=== PATIENT | male | born 1965 | race Two or more races ===

== ENCOUNTER 2018-03-11 18:36 | Emergency (ER) | payer MEDICAID ==
[~2018-03-11] VITALS: Ht 170.2 cm; Wt 81.6 kg
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
--- NOTE | 2018-03-11 19:00 | NUR ---
DR TORIBIO AT BS FOR EVAL.
--- NOTE | 2018-03-11 19:17 | NUR ---
REPORT GIVEN TO VLAD CARDOSO FOR GAEL.
--- NOTE | 2018-03-11 19:23 | NUR ---
URINE OBTAINED SENT TO THE LAB.
--- NOTE | 2018-03-11 19:26 | NUR ---
RECEIVED REPORT FROM VLAD ANDREW FOR GAEL. [employer] LEAVING PT'S BEDSIDE. PT SAFETY AND COMFORT MEASURES IN PLACE. SI PRECAUTIONS IN PLACE. WILL CONTINUE TO MONITOR PT
[2018-03-11 19:33] LABS: APPEARANCE,URINE Clear (CLEAR); BILIRUBIN,URINE Negative (NEGATIVE); BLOOD, URINE Small Ery/uL (NEGATIVE); COLOR,URINE Yellow (YELLOW); KETONES,URINE Negative (NEGATIVE); LEUKOCYTE ESTERASE ,URINE Negative (NEGATIVE); NITRITE, URINE Negative (NEGATIVE); PROTEIN,URINE Negative (NEGATIVE); UGLUCOSE Negative (NEGATIVE); UROBILINOGEN,URINE 0.2 EU/dL (0.2)
--- NOTE | 2018-03-11 19:33 | NUR ---
CALLED POOL NURSE FOR A SITTER.
[2018-03-11 19:35] LABS: BACTERIA,URINE Rare /HPF (None Seen); SQUAMOUS EPITHELIAL CELL,UR Few /HPF (None Seen); WBC,URINE 0-2 /HPF (0-3)
[2018-03-11 19:45] LABS: BASOPHILS # (AUTO) 0.1 /CMM (0.0-0.2); EOSINOPHILS % (AUTO) 1.7 % (0.0-6.0); HEMATOCRIT 44 % (39-51); HEMOGLOBIN 14.7 g/dL (13.5-17.5); LYMPHOCYTES # (AUTO) 2.1 /CMM (0.8-4.8); LYMPHOCYTES % (AUTO) 26.4 % (20.0-44.0); MEAN CORPUSCULAR HGB CONC 33 g/dl (31.0-36.0); MEAN CORPUSCULAR VOLUME 96 fL (80-96); MONOCYTES # (AUTO) 0.6 /CMM (0.1-1.30); NEUTROPHILS # (AUTO) 5.2 /CMM (1.8-8.9); NEUTROPHILS % (AUTO) 63.9 % (43.0-81.0); PLATELET COUNT (AUTO) 211 /CMM (150-450); WHITE BLOOD COUNT (AUTO) 8.1 K/uL (4.3-11.0)
[2018-03-11 19:55] LABS: CALCIUM, SERUM 7.9 mg/dL (8.5-10.1); CARBON DIOXIDE 25 mmol/L (21-32); CHLORIDE 104 mmol/L (98-107); CREATININE 0.8 mg/dL (0.6-1.3); GLUCOSE 100 mg/dL (74-106); POTASSIUM 3.6 mmol/L (3.5-5.1); SODIUM SERUM 141 mmol/L (136-145); UREA NITROGEN, BLOOD 9 mg/dL (7-18)
--- NOTE | 2018-03-11 20:01 | NUR ---
[facility] CONTACT INFORMATION [phone]
[2018-03-11 20:02] LABS: ALANINE AMINOTRANSFERASE 63 U/L (12-78); ALBUMIN 3.8 g/dL (3.4-5.0); ALCOHOL, BLOOD 374 mg/dL (0-0); ALKALINE PHOSPHATASE 96 U/L (46-116); ASPARTATE AMINOTRANSFERASE 71 U/L (15-37); BILIRUBIN,DIRECT 0.1 mg/dL (0.0-0.2); BILIRUBIN,TOTAL 0.3 mg/dL (0.2-1.0); TOTAL PROTEIN, SERUM 7.5 g/dL (6.4-8.2)
--- NOTE | 2018-03-11 20:03 | NUR ---
PSYCHIATRIC PAPER INSERTER CURRY OCAMPO WITH PT.
[2018-03-11 20:04] LABS: ACETAMINOPHEN < 2 ug/ml (10-30); SALICYLATE 2.5 mg/dL (2.8-20.0)
--- NOTE | 2018-03-11 21:17 | NUR ---
Patient is resting comfortably in bed with eyes closed. Easily aroused. VSS
--- NOTE | 2018-03-11 21:17 | NUR ---
CALLED [facility]LE FOR BLS TRANSPORT TO [facility]. NON-IMMEDIATE TRANSPORT REQUESTED FOR 0100 HRS. RUN #: [id number]
--- NOTE | 2018-03-12 02:12 | NUR ---
REPORT GIVEN TO EMS FOR GAEL. PT BEING TRANSFERED ONTO EMS GURNEY. NO S/S OF ACUTE DISTRESS NOTED UPON TRANSFER. Patient Tranfers to outside Facility Physician:HALINA Location:[facility]
[2018-03-12 02:14] VITALS: BP 149/96
== END 2018-03-12 02:16 ==
LOC: ER 18:36
DX: F10.129 Alcohol abuse with intoxication, unspecified (principal); F32.9 Major depressive disorder, single episode, unspecified; I10 Essential (primary) hypertension; F17.200 Nicotine dependence, unspecified, uncomplicated; F12.10 Cannabis abuse, uncomplicated; Y90.8 Blood alcohol level of 240 mg/100 ml or more; Z60.2 Problems related to living alone
CPT/HCPCS: 36415; 80048; 80076; 80305; 80329; 81001; 85025; 99285; A4606; G0480 ×2; Z7610; 81000-TC